=== PATIENT | female | born 2005 | race Caucasian/White ===

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

== ENCOUNTER 2023-03-14 12:43 | Emergency (ER) | payer OTHER ==
[~2023-03-14] VITALS: Ht 165.1 cm; Wt 91.2 kg
[~2023-03-14 12:43] MED LIST changes: -ACET-8386 PO; +ACET-8905 PO; -DIAZ5TAB7 PO; +DIAZ5TAB8 PO; +FAMO-90 PO; +IMO2 PO; +ONDA-188 SL
[2023-03-14 13:07] VITALS: BP 124/88
[2023-03-14 14:44] LABS: BILIRUBIN,URINE NEGATIVE (NEGATIVE); BLOOD, URINE 1+ (NEGATIVE); COLOR,URINE YELLOW (YELLOW); LEUKOCYTE ESTERASE ,URINE 1+ (NEGATIVE); NITRITE, URINE NEGATIVE (NEGATIVE); UGLUCOSE NEGATIVE (NEGATIVE)
[2023-03-14 14:54] LABS: APPEARANCE,URINE CLOUDY (CLEAR)
[2023-03-14 14:58] LABS: RBC,URINE 11-20 (MOD) /HPF (0-5)
[2023-03-14 15:35] LABS: BASOPHILS % (AUTO) 0.5 % (0.0-2.0); HEMATOCRIT 37.2 % (36-48); HEMOGLOBIN 12.7 g/dL (12.0-16.0); LYMPHOCYTES # (AUTO) 1.5 K/uL (2.5-16.5); LYMPHOCYTES % (AUTO) 19.3 % (20.5-51.1); MEAN CORPUSCULAR HEMOGLOBIN 30 pg (27-31); MEAN CORPUSCULAR HGB CONC 34 g/dL (33-37); MEAN CORPUSCULAR VOLUME 88.9 fL (80-94); MONOCYTES # (AUTO) 0.6 K/uL (0.8-1.0); MONOCYTES % (AUTO) 8.4 % (1.7-9.3); NEUTROPHILS # (AUTO) 5.6 K/uL (1.8-7.7); NEUTROPHILS % (AUTO) 71.8 % (42.2-75.2); PLATELET COUNT (AUTO) 429 K/uL (140-450); RED BLOOD CELL COUNT(AUTO) 4.19 MIL/uL (4.20-5.40); RED CELL DISTRIBUTION WIDTH 13.7 % (11.6-13.7); WHITE BLOOD COUNT (AUTO) 7.7 K/uL (4.5-11.0)
[2023-03-14] MEDS ORDERED: LIDO4CRE18 TP (16:53)
[2023-03-14] MEDS ORDERED: ACET-2214 PO (16:53)
[2023-03-14] MEDS ORDERED: CEPH-588 PO (16:53)
--- NOTE | 2023-03-14 17:02 | NUR ---
Patient discharged with v/s stable. Written and verbal after care instructions given and explained. Patient alert, oriented and verbalized understanding of instructions. Ambulatory with steady gait. All questions addressed prior to discharge. ID band removed. Patient advised to follow up with PMD. Rx of TYLENOL, KEFLEX, ANECREAM given. Patient educated on indication of medication including possible reaction and side effects. Opportunity to ask questions provided and answered.
== END 2023-03-14 17:02 | disposition home or self-care (01) ==
LOC: MED 12:43
DX: K62.89 Other specified diseases of anus and rectum (principal); R11.0 Nausea; N39.0 Urinary tract infection, site not specified; N83.209 Unspecified ovarian cyst, unspecified side; Z79.899 Other long term (current) drug therapy
CPT/HCPCS: 36415; 76801; 81001; 81025; 84702; 85025; 87086; 87491; 99284; Q0092

== ENCOUNTER 2023-03-25 00:23 | Emergency (ER) | payer OTHER ==
[~2023-03-25] VITALS: Ht 165.1 cm; Wt 89.8 kg
[~2023-03-25 00:23] MED LIST changes: +ACET-2214 PO; +CEPH-588 PO; +LIDO4CRE18 TP
[2023-03-25 01:06] VITALS: BP 103/58
--- NOTE | 2023-03-25 01:25 | NUR ---
PT TO BED 09.
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
--- NOTE | 2023-03-25 01:49 | NUR ---
LAB AT BEDSIDE
[2023-03-25 02:02] LABS: BASOPHILS # (AUTO) 0.1 K/uL (0.00-0.22); BASOPHILS % (AUTO) 0.9 % (0.0-2.0); EOSINOPHILS # (AUTO) 0.1 K/uL (0-0.4); EOSINOPHILS % (AUTO) 0.5 % (0.0-4.0); HEMATOCRIT 36.5 % (36-48); HEMOGLOBIN 12.4 g/dL (12.0-16.0); LYMPHOCYTES # (AUTO) 3.8 K/uL (2.5-16.5); LYMPHOCYTES % (AUTO) 31.5 % (20.5-51.1); MEAN CORPUSCULAR HEMOGLOBIN 30 pg (27-31); MEAN CORPUSCULAR HGB CONC 34 g/dL (33-37); MEAN CORPUSCULAR VOLUME 89.3 fL (80-94); MONOCYTES # (AUTO) 0.9 K/uL (0.8-1.0); MONOCYTES % (AUTO) 7.3 % (1.7-9.3); NEUTROPHILS # (AUTO) 7.3 K/uL (1.8-7.7); NEUTROPHILS % (AUTO) 59.8 % (42.2-75.2); PLATELET COUNT (AUTO) 369 K/uL (140-450); RED BLOOD CELL COUNT(AUTO) 4.09 MIL/uL (4.20-5.40); RED CELL DISTRIBUTION WIDTH 13.6 % (11.6-13.7); WHITE BLOOD COUNT (AUTO) 12.1 K/uL (4.5-11.0)
[2023-03-25 02:02] LABS: APPEARANCE,URINE CLEAR (CLEAR); BILIRUBIN,URINE NEGATIVE (NEGATIVE); BLOOD, URINE 2+ (NEGATIVE); COLOR,URINE YELLOW (YELLOW); LEUKOCYTE ESTERASE ,URINE TRACE (NEGATIVE); NITRITE, URINE NEGATIVE (NEGATIVE); PH,URINE 6.5 (5.0-9.0); UGLUCOSE NEGATIVE (NEGATIVE)
[2023-03-25] MEDS ORDERED: NITR100C7 PO (05:46)
[2023-03-25 06:04] VITALS: BP 109/67
== END 2023-03-25 06:03 | disposition home or self-care (01) ==
LOC: MED 00:23
DX: O20.0 Threatened abortion (principal); O98.911 Unspecified maternal infectious and parasitic disease complicating pregnancy, first trimester; R82.71 Bacteriuria; Z79.899 Other long term (current) drug therapy; Z3A.01 Less than 8 weeks gestation of pregnancy
CPT/HCPCS: 36415; 76817; 81001; 81025; 84702; 85025; 86900; 86901; 87086; 99284; Q0092

== ENCOUNTER 2023-08-20 07:40 | Observation (INO) | payer OTHER ==
[~2023-08-20] VITALS: Ht 165.1 cm; Wt 108.9 kg
[~2023-08-20 07:40] MED LIST changes: +MAG355OR2 PO; +NITR100C7 PO
[2023-08-20 08:27] VITALS: BP 107/76; PULSE 85; RESP 18; TEMP 98.4; O2SAT 99
[2023-08-20] MEDS ORDERED: NACL 0.9% 1,000 ML IV SCH (08:45)
[2023-08-20] MEDS ORDERED: LACTATED RINGERS 1,000 ML IV SCH (08:45)
[2023-08-20] MEDS ORDERED: PRETAB PO (11:33)
== END 2023-08-20 11:50 | disposition home or self-care (01) ==
LOC: MLD 07:40
PROVIDERS: ADMIT Obstetrics & Gynecology; ATTEND Obstetrics & Gynecology
DX: O26.893 Other specified pregnancy related conditions, third trimester (principal); R50.9 Fever, unspecified; R10.9 Unspecified abdominal pain; Z20.822 Contact with and (suspected) exposure to COVID-19; Z3A.28 28 weeks gestation of pregnancy
CPT/HCPCS: 59025; 81000; 87426; 96365; G0378; J0696; J7060

== ENCOUNTER 2023-10-28 09:31 | Emergency (ER) | payer OTHER ==
[~2023-10-28] VITALS: Ht 165.1 cm; Wt 122.5 kg
[~2023-10-28 09:31] MED LIST changes: -ACET-2214 PO; -ACET-8905 PO; -CEPH-588 PO; -DIAZ5TAB8 PO; -FAMO-90 PO; -IMO2 PO; -LIDO4CRE18 TP; -MAG355OR2 PO; -NITR100C7 PO; -ONDA-188 SL; -PAM10 PO; +PRETAB PO
[2023-10-28 09:50] VITALS: BP 109/71; PULSE 82; RESP 18; TEMP 98; O2SAT 97
[2023-10-28] MEDS ORDERED: OLOP5DRO19 RIGHT EYE (10:53)
[2023-10-28] MEDS ORDERED: LORA10TA19 PO (10:53)
[2023-10-28 11:00] VITALS: BP 109/71; PULSE 82; RESP 18; TEMP 98; O2SAT 98
== END 2023-10-28 10:58 | disposition home or self-care (01) ==
LOC: MED 09:31
DX: O98.813 Other maternal infectious and parasitic diseases complicating pregnancy, third trimester (principal); H10.11 Acute atopic conjunctivitis, right eye; Z3A.39 39 weeks gestation of pregnancy; Z79.899 Other long term (current) drug therapy
CPT/HCPCS: 99282

== ENCOUNTER 2023-11-07 11:29 | Inpatient (IN) | payer OTHER ==
[~2023-11-07] VITALS: Ht 165.1 cm; Wt 122.9 kg
[~2023-11-07 11:29] MED LIST changes: +LORA10TA19 PO; +OLOP5DRO19 RIGHT EYE
[2023-11-07] MEDS ORDERED: CARBOPROST 250 MCG/ML AMP IM PRN (12:10)
[2023-11-07] MEDS ORDERED: LACTATED RINGERS 500 ML IV SCH (12:10)
[2023-11-07] MEDS ORDERED: METHYLERGONOVINE 0.2 MG/ML AMP IM PRN ×2 (12:10→22:40)
[2023-11-07] MEDS ORDERED: OXYTOCIN 10 UNITS/ML VIAL IM SCH (12:10)
[2023-11-07 12:48] LABS: BASOPHILS # (AUTO) 0.1 K/uL (0.00-0.22); BASOPHILS % (AUTO) 0.9 % (0.0-2.0); HEMATOCRIT 33.5 % (36-48); HEMOGLOBIN 11.5 g/dL (12.0-16.0); LYMPHOCYTES # (AUTO) 0.9 K/uL (2.5-16.5); LYMPHOCYTES % (AUTO) 14.5 % (20.5-51.1); MEAN CORPUSCULAR HEMOGLOBIN 30 pg (27-31); MEAN CORPUSCULAR HGB CONC 34 g/dL (33-37); MEAN CORPUSCULAR VOLUME 86.8 fL (80-94); MONOCYTES # (AUTO) 0.6 K/uL (0.8-1.0); MONOCYTES % (AUTO) 9.9 % (1.7-9.3); NEUTROPHILS # (AUTO) 4.6 K/uL (1.8-7.7); NEUTROPHILS % (AUTO) 74.7 % (42.2-75.2); PLATELET COUNT (AUTO) 302 K/uL (140-450); RED BLOOD CELL COUNT(AUTO) 3.86 MIL/uL (4.20-5.40); WHITE BLOOD COUNT (AUTO) 6.2 K/uL (4.5-11.0)
[2023-11-07 13:12] LABS: INR 0.86 (0.8-1.2); PARTIAL THROMBOPLASTIN TIME 31.1 secs (22-35.6); PROTHROMBIN TIME 9.1 secs (10.8-13.4)
[2023-11-07] MEDS ORDERED: OXYTOCIN 20 UNITS in LACTATED RINGERS 1,000 ML IV SCH (13:15)
[2023-11-07 13:30] LABS: ANION GAP 12.8 (8-16); CALCIUM 8.5 mg/dL (8.5-10.1); CARBON DIOXIDE 24.7 mmol/L (21-32); CREATININE 0.6 mg/dL (0.6-1.3); POTASSIUM 3.5 mmol/L (3.5-5.1); TOTAL BILIRUBIN 0.2 mg/dL (0.0-1.0); TOTAL PROTEIN, SERUM 6.9 g/dL (6.4-8.2)
[2023-11-07 13:31] LABS: APPEARANCE,URINE CLEAR (CLEAR); BILIRUBIN,URINE NEGATIVE (NEGATIVE); BLOOD, URINE TRACE-I (NEGATIVE); COLOR,URINE YELLOW (YELLOW); LEUKOCYTE ESTERASE ,URINE TRACE (NEGATIVE); NITRITE, URINE NEGATIVE (NEGATIVE); PH,URINE 6.5 (5.0-9.0); PROTEIN,URINE 1+ (NEGATIVE); UGLUCOSE NEGATIVE (NEGATIVE); UROBILINOGEN,URINE 0.2 EU/dL (0.2 - 1)
[2023-11-07 13:46] LABS: BACTERIA,URINE FEW /HPF (None Seen); RBC,URINE 0-5 /HPF (0-5); SQUAMOUS EPITHELIAL CELL,UR 0-3 (FEW) /LPF (0-3 (FEW)); WBC,URINE 0-5 /HPF (0-5)
[2023-11-07] MEDS: LACTATED RINGERS 1,000 ML IV SCH ×3 (14:01→19:45)
[2023-11-07] MEDS ORDERED: OXYTOCIN 20 UNITS/LR PREMIX 1,000 ML IV ONE (14:09)
[2023-11-07 15:56] VITALS: BP 117/72; PULSE 99; RESP 18; TEMP 98.1
[2023-11-07] MEDS ORDERED: ONDANSETRON 4 MG/2 ML VIAL ONE (18:11)
[2023-11-07] MEDS ORDERED: ONDANSETRON 4 MG/2 ML VIAL IVP PRN (18:15)
[2023-11-07] MEDS: NALBUPHINE 10 MG/ML AMP IVP PRN ×2 (18:16→18:18)
[2023-11-07] MEDS ORDERED: AMPICILLIN 2,000 MG in NACL 0.9% 100 ML IV SCH (18:50)
[2023-11-07] MEDS ORDERED: ROPIVACAINE 0.2%/NS PREMIX 200 ML EPI ONE (19:06)
[2023-11-07] MEDS ORDERED: AMPICILLIN 2,000 MG VIAL ONE (19:35)
[2023-11-07] MEDS ORDERED: AMPICILLIN 1,000 MG in NACL 0.9% 50 ML IV SCH (20:00)
[2023-11-07] MEDS ORDERED: LIDOCAINE 1% 500 MG/50 ML VIAL ONE (22:05)
[2023-11-07] MEDS ORDERED: BENZOCAINE/MENTHOL 20%-0.5% 60 GM CAN TP PRN (22:40)
[2023-11-07] MEDS ORDERED: METHYLERGONOVINE 0.2 MG TAB PO PRN (22:40)
[2023-11-07] MEDS ORDERED: OXYTOCIN 10 UNITS/ML VIAL IM PRN (22:40)
[2023-11-07] MEDS ORDERED: oxyCODONE/APAP 5/325 MG 1 TAB TAB PO PRN (22:40)
[2023-11-07] MEDS ORDERED: IBUPROFEN 800 MG TAB PO PRN (22:40)
[2023-11-07] MEDS ORDERED: TEMAZEPAM 15 MG CAP PO PRN (22:40)
[2023-11-08] MEDS: oxyCODONE/APAP 5/325 MG 1 TAB TAB PO PRN ×2 (08:48→20:47)
[2023-11-08 08:49] LABS: HEMATOCRIT 28.5 % (36-48)
[2023-11-08] MEDS ORDERED: DOCUSATE SOD/SENNA 50/8.6 MG 1 TAB PO SCH (21:00)
== END 2023-11-09 17:15 | disposition home or self-care (01) | DRG 560 ==
LOC: MFCC 11:29 → OBSVTOIN 12:17 → MLD 17:19 → MFCC 11-08 00:19
PROVIDERS: ADMIT Obstetrics & Gynecology; ATTEND Obstetrics & Gynecology
PROC: 10D07Z6 Extraction of Products of Conception, Vacuum, Via Natural or Artificial Opening (ICD-10-PCS; principal; 2023-11-07)
PROC: 3E0R3BZ Introduction of Anesthetic Agent into Spinal Canal, Percutaneous Approach (ICD-10-PCS; 2023-11-07)
PROC: 00HU33Z Insertion of Infusion Device into Spinal Canal, Percutaneous Approach (ICD-10-PCS; 2023-11-07)
DX: O69.81X0 Labor and delivery complicated by cord around neck, without compression, not applicable or unspecified (principal); Z37.0 Single live birth; R71.0 Precipitous drop in hematocrit; Z20.822 Contact with and (suspected) exposure to COVID-19; Z3A.39 39 weeks gestation of pregnancy
CPT/HCPCS: 36415; 51702; 80053; 81001; 85018; 85025; 85610; 85730; 86592; 86886; 86900; 86901; J0290; J2001; J2300; J2405; J2590; J2795

== ENCOUNTER 2023-12-21 10:42 | Emergency (ER) | payer OTHER ==
[~2023-12-21] VITALS: Ht 165.1 cm; Wt 116.2 kg
[~2023-12-21 10:42] MED LIST changes: -LORA10TA19 PO; -OLOP5DRO19 RIGHT EYE
[2023-12-21 11:08] VITALS: BP 126/89; PULSE 67; RESP 20; TEMP 97.7; O2SAT 97
[2023-12-21 11:27] LABS: BASOPHILS % (AUTO) 0.6 % (0.0-2.0); EOSINOPHILS % (AUTO) 0.3 % (0.0-4.0); HEMOGLOBIN 11.6 g/dL (12.0-16.0); LYMPHOCYTES # (AUTO) 1.7 K/uL (2.5-16.5); MEAN CORPUSCULAR HEMOGLOBIN 29 pg (27-31); MEAN CORPUSCULAR HGB CONC 34 g/dL (33-37); MEAN CORPUSCULAR VOLUME 84.5 fL (80-94); MONOCYTES # (AUTO) 0.5 K/uL (0.8-1.0); NEUTROPHILS # (AUTO) 6.2 K/uL (1.8-7.7); NEUTROPHILS % (AUTO) 73.1 % (42.2-75.2); PLATELET COUNT (AUTO) 481 K/uL (140-450); RED BLOOD CELL COUNT(AUTO) 4.02 MIL/uL (4.20-5.40); RED CELL DISTRIBUTION WIDTH 14.2 % (11.6-13.7); WHITE BLOOD COUNT (AUTO) 8.4 K/uL (4.5-11.0)
[2023-12-21 11:35] LABS: ANION GAP 11.5 (8-16); CALCIUM 9.1 mg/dL (8.5-10.1); CARBON DIOXIDE 27.5 mmol/L (21-32); CREATININE 0.6 mg/dL (0.6-1.3)
[2023-12-21 11:41] LABS: ALBUMIN 3.1 g/dL (3.4-5.0); BILIRUBIN,DIRECT 0.1 mg/dL (0.0-0.3); TOTAL BILIRUBIN 0.2 mg/dL (0.0-1.0); TOTAL PROTEIN, SERUM 8.3 g/dL (6.4-8.2)
[2023-12-21] MEDS ORDERED: FAMO-90 PO (13:56)
[2023-12-21] MEDS ORDERED: CALC-870 PO (13:56)
[2023-12-21] MEDS ORDERED: DICYCLOMINE HCL LIQUID 10 MG/5 ML UDC ONE (13:59)
[2023-12-21] MEDS ORDERED: ALUMINUM HYD/MAG/SIMETHICONE 30 ML UDC ONE (13:59)
[2023-12-21] MEDS: DICYCLOMINE HCL LIQUID 20 MG, ALUMINUM HYD/MAG/SIMETHICONE 30 ML, LIDOCAINE VISCOUS 2% ... PO ONE (14:04)
[2023-12-21 14:05] LABS: BILIRUBIN,URINE NEGATIVE (NEGATIVE); BLOOD, URINE 3+ (NEGATIVE); LEUKOCYTE ESTERASE ,URINE NEGATIVE (NEGATIVE); NITRITE, URINE NEGATIVE (NEGATIVE); PROTEIN,URINE 1+ (NEGATIVE); UGLUCOSE NEGATIVE (NEGATIVE); UROBILINOGEN,URINE 0.2 EU/dL (0.2 - 1)
[2023-12-21] MEDS: FAMOTIDINE 20 MG TAB PO ONE (14:05)
[2023-12-21 14:06] LABS: APPEARANCE,URINE HAZY (CLEAR)
[2023-12-21 14:07] LABS: COLOR,URINE REDDISH PINK (YELLOW); RBC,URINE TOO NUMEROUS TO COUN /HPF (0-5)
[2023-12-21 14:08] LABS: BACTERIA,URINE FEW /HPF (None Seen); SQUAMOUS EPITHELIAL CELL,UR 0-3 (FEW) /LPF (0-3 (FEW)); WBC,URINE 0-5 /HPF (0-5)
== END 2023-12-21 14:35 | disposition home or self-care (01) ==
LOC: MED 10:42
DX: K21.9 Gastro-esophageal reflux disease without esophagitis (principal); R31.9 Hematuria, unspecified; Z79.899 Other long term (current) drug therapy
CPT/HCPCS: 36415; 80048; 80076; 81001; 81025; 83690; 85025; 99283

== ENCOUNTER 2024-01-16 00:10 | Emergency (ER) | payer OTHER ==
[~2024-01-16] VITALS: Ht 165.1 cm; Wt 112.5 kg
[~2024-01-16 00:10] MED LIST changes: +CALC-870 PO; +FAMO-90 PO
[2024-01-16 00:35] VITALS: BP 128/77; PULSE 93; RESP 17; TEMP 97.9
== END 2024-01-16 03:00 | disposition left against medical advice (07) ==
LOC: MED 00:10
DX: R10.13 Epigastric pain (principal); R11.2 Nausea with vomiting, unspecified; R19.7 Diarrhea, unspecified; Z53.21 Procedure and treatment not carried out due to patient leaving prior to being seen by health care provider
CPT/HCPCS: 99281